=== PATIENT | male | born 1970 | race Two or more races ===

== ENCOUNTER 2024-02-09 01:31 | Emergency (ER) | payer SELFPAY ==
[~2024-02-09] VITALS: Ht 172.7 cm; Wt 78.5 kg
[2024-02-09 01:34] VITALS: TEMP 99.8
[2024-02-09 07:52] VITALS: BP 135/81; PULSE 63; RESP 14; O2SAT 98
== END 2024-02-09 07:54 | disposition home or self-care (01) ==
LOC: ER 01:32
DX: S60.221A Contusion of right hand, initial encounter (principal); S00.81XA Abrasion of other part of head, initial encounter; Y08.89XA Assault by other specified means, initial encounter; Y93.89 Activity, other specified; Y92.89 Other specified places as the place of occurrence of the external cause; Y99.8 Other external cause status
CPT/HCPCS: 73130; 99284; L0172